=== PATIENT | female | born 1990 | race Caucasian/White ===

== ENCOUNTER 2016-05-25 10:23 | Observation (INO) | payer OTHER ==
[2016-05-25] MEDS ORDERED: HYDROmorphone 1 MG/ML 1 ML SYRINGE IVP STA ×3 (12:30→15:26)
[2016-05-25] MEDS ORDERED: SODIUM CHLORIDE 0.9% 1,000 ML IV ONE (12:30)
[2016-05-25] MEDS ORDERED: ONDANSETRON 4 MG/2 ML VIAL IVP STA (12:31)
--- NOTE | 2016-05-25 12:42 | ED ---
Abdominal Pain HPI <Vinod Collado - Last Filed: 05/25/16 17:48> - General Source: patient, RN notes reviewed Mode of arrival: ambulatory Limitations: no limitations <Kamla Corrales - Last Filed: 05/25/16 20:33> - General Chief Complaint: Abdominal Pain Stated Complaint: Had miscarriage/ bleeding Time Seen by Provider: 05/25/16 11:56 - History of Present Illness Initial Comments: Patient is 26-year-old female presents to the emergency room for evaluation of lower abdominal pain. Patient states that she was diagnosed with a miscarriage 3 days ago. Patient states she found out she was on 05/14/16. Patient states she began with vaginal bleeding and lower abdominal pain. Patient states she went to [facility] 3 days ago and was told was having a miscarriage and told her to return to the emergency room if she is having worsening pain. Patient states they did do an ultrasound at [facility] and told her she could be having a possible ectopic . Patient states she began having worsening pain today. Patient states having bilateral lower pelvic pain with bleeding. Patient states she was passing multiple clots yesterday. Patient states pain radiates to her back. Patient states she is nauseous and has been vomiting from pain. Patient denies pain or burning during urination, trouble urinating or blood in urine. Patient states she has a history of 1 previous miscarriage in March. Patient denies any previous pregnancies. Patient denies chest pain, shortness of breath, headache , dizziness. (Kamla Corrales) - Related Data Home Medications Medication Instructions Recorded Confirmed No Known Home Medications [No 05/25/16 05/25/16 Known Home Medications] Allergies Allergy/AdvReac Type Severity Reaction Status Date / Time No Known Allergies Allergy Verified 05/25/16 10:46 Review of Systems ROS Other: All systems not noted in ROS Statement are negative. <Vinod Collado - Last Filed: 05/25/16 17:48> ROS Other: All systems not noted in ROS Statement are negative. <Kamla Corrales - Last Filed: 05/25/16 20:33> ROS Statement: Those systems with pertinent positive or pertinent negative responses have been documented in the HPI. Past Medical History Additional Past Medical History / Comment(s): back pain History of Any Multi-Drug Resistant Organisms: None Reported Additional Past Surgical History / Comment(s): breast biopsy 07/2013 right breast Past Anesthesia/Blood Transfusion Reactions: No Reported Reaction Past Psychological History: No Psychological Hx Reported Smoking Status: Current every day smoker Past Alcohol Use History: Heavy Past Drug Use History: Marijuana <Kamla Corrales - Last Filed: 05/25/16 20:33> General Exam <Vinod Collado - Last Filed: 05/25/16 17:48> Limitations: no limitations General appearance: alert, in no apparent distress Head exam: Present: atraumatic, normocephalic, normal inspection Eye exam: Present: normal appearance ENT exam: Present: normal exam Neck exam: Present: normal inspection Respiratory exam: Present: normal lung sounds bilaterally. Absent: respiratory distress Cardiovascular Exam: Present: normal rhythm, tachycardia, normal heart sounds GI/Abdominal exam: Present: soft, tenderness (Right lower quadrant and left lower quadrant), normal bowel sounds. Absent: distended, guarding, rebound, rigid External exam: Present: normal external exam Speculum exam: Present: vaginal bleeding (Mild vaginal bleeding from cervix, no clotting noted.). Absent: normal speculum exam By manual exam: Present: adnexal tenderness Extremities exam: Present: normal inspection Back exam: Present: normal inspection Neurological exam: Present: alert, oriented X3, CN II-XII intact, normal gait Psychiatric exam: Present: normal affect, normal mood Skin exam: Present: warm, dry, intact, normal color. Absent: rash <Kamla Corrales - Last Filed: 05/25/16 20:33> - General Exam Comments Initial Comments: Sitting in exam room, anxious secondary to pain, no acute distress. (Kamla Corrales) Medical Decision Making - Lab Data Result diagrams: 05/25/16 15:40 05/25/16 11:41 <Vinod Collado - Last Filed: 05/25/16 17:48> - Lab Data Result diagrams: 05/25/16 18:16 05/25/16 11:41 - Radiology Data Radiology results: report reviewed, image reviewed <Kamla Corrales - Last Filed: 05/25/16 20:33> - Medical Decision Making I staffed the patient with Kamla and they went in and evaluated the patient for myself. I got a complete history with the patient I did a physical exam on the patient I reviewed all lab work and ultrasound and I spoke with Dr. Glass. I indicated to Dr. Glass as ectopic with internal bleeding I repeated a hemoglobin in the emergency department hemoglobin was 9 down from [address] Glass stated she would take the patient to the OR. ( Vinod Collado) Patient is a 26-year-old female presents emergency room for evaluation of worsening lower abdominal pain. Patient was diagnosed with a miscarriage about 3 days ago. Patient's hemoglobin at [facility] on 05/21/16 at 13.0. Patient 's hemoglobin today 10.3. Ultrasound showed evidence for possible ruptured ectopic . On reevaluation patient did appear more pale than first encounter with her. CBC redrawn and hemoglobin went down and 9. Case discussed with Dr. Collado. Dr. Collado also evaluated patient. Discussed case with Dr. Glass who is going to a patient down to the OR. Plan discussed with patient. (Kamla Corrales) - Lab Data Lab Results 05/25/16 05/25/16 05/25/16 Range/Units 11:41 11:41 11:41 WBC 8.6 (3.8-10.6) k/uL RBC 3.35 L (3.80-5.40) m/uL Hgb 10.2 L D (11.4-16.0) gm/dL Hct 31.7 L (34.0-46.0) % MCV 94.6 (80.0-100.0) fL MCH 30.5 (25.0-35.0) pg MCHC 32.3 (31.0-37.0) g/dL RDW 12.1 (11.5-15.5) % Plt Count 212 (150-450) k/uL Neutrophils % 81 % Lymphocytes % 13 % Monocytes % 5 % Eosinophils % 0 % Basophils % 0 % Neutrophils # 7.0 (1.3-7.7) k/uL Lymphocytes # 1.1 (1.0-4.8) k/uL Monocytes # 0.4 (0-1.0) k/uL Eosinophils # 0.0 (0-0.7) k/uL Basophils # 0.0 (0-0.2) k/uL Sodium 140 (137-145) mmol/L Potassium 3.9 (3.5-5.1) mmol/L Chloride 106 (98-107) mmol/L Carbon Dioxide 24 (22-30) mmol/L Anion Gap 10 mmol/L BUN 13 (7-17) mg/dL Creatinine 0.58 (0.52-1.04) mg/dL Est GFR (MDRD) Af Amer >60 (>60 ml/min/1.73 sqM) Est GFR (MDRD) Non-Af >60 (>60 ml/min/1.73 sqM) Glucose 104 H (74-99) mg/dL Calcium 9.0 (8.4-10.2) mg/dL Total Bilirubin 0.5 (0.2-1.3) mg/dL AST 15 (14-36) U/L ALT 30 (9-52) U/L Alkaline Phosphatase 32 L (38-126) U/L Total Protein 6.7 (6.3-8.2) g/dL Albumin 4.1 (3.5-5.0) g/dL HCG, Quant 351.2 mIU/mL Blood Type Blood Type Recheck Antibody Screen Crossmatch Spec Expiration Date 05/25/16 05/25/16 05/25/16 Range/Units 11:41 15:40 18:16 WBC 7.4 9.4 (3.8-10.6) k/uL RBC 2.79 L 2.83 L (3.80-5.40) m/uL Hgb 9.0 L 9.0 L (11.4-16.0) gm/dL Hct 26.7 L 27.7 L (34.0-46.0) % MCV 95.7 97.9 (80.0-100.0) fL MCH 32.1 32.0 (25.0-35.0) pg MCHC 33.6 32.7 (31.0-37.0) g/dL RDW 12.2 12.1 (11.5-15.5) % Plt Count 189 187 (150-450) k/uL Neutrophils % % Lymphocytes % % Monocytes % % Eosinophils % % Basophils % % Neutrophils # (1.3-7.7) k/uL Lymphocytes # (1.0-4.8) k/uL Monocytes # (0-1.0) k/uL Eosinophils # (0-0.7) k/uL Basophils # (0-0.2) k/uL Sodium (137-145) mmol/L Potassium (3.5-5.1) mmol/L Chloride (98-107) mmol/L Carbon Dioxide (22-30) mmol/L Anion Gap mmol/L BUN (7-17) mg/dL Creatinine (0.52-1.04) mg/dL Est GFR (MDRD) Af Amer (>60 ml/min/1.73 sqM) Est GFR (MDRD) Non-Af (>60 ml/min/1.73 sqM) Glucose (74-99) mg/dL Calcium (8.4-10.2) mg/dL Total Bilirubin (0.2-1.3) mg/dL AST (14-36) U/L ALT (9-52) U/L Alkaline Phosphatase (38-126) U/L Total Protein (6.3-8.2) g/dL Albumin (3.5-5.0) g/dL HCG, Quant mIU/mL Blood Type O Positive Blood Type Recheck No Antibody Screen NEGATIVE Crossmatch See Detail Spec Expiration Date 05/28/2016 - 2341 Critical Care Time Critical Care Time: Yes Total Critical Care Time: 35 <Vinod Collado - Last Filed: 05/25/16 17:48> Disposition <Vinod Collado - Last Filed: 05/25/16 17:48> Decision Date: 05/25/16 <Kamla Corrales - Last Filed: 05/25/16 20:33> Clinical Impression: Ruptured ectopic Disposition: ADMITTED IP TO THIS [facility] Condition: Stable Referrals: Kenneth Sanders MD [Primary Care Provider] - 1-2 days
[2016-05-25 12:50] LABS: Basophils % (A) 0 %; CH 31.6; CHCM 33.5; Eosinophils % (A) 0 %; HCT 31.7 % (34.0-46.0); HDW 2.25; Luc % (Auto) 1; Lymphocytes # (A) 1.1 k/uL (1.0-4.8); Lymphocytes % (A) 13 %; MCH 30.5 pg (25.0-35.0); MCHC 32.3 g/dL (31.0-37.0); MCV 94.6 fL (80.0-100.0); Monocytes # (A) 0.4 k/uL (0-1.0); Monocytes % (A) 5 %; Neutrophils % (A) 81 %; RBC 3.35 m/uL (3.80-5.40); RDW 12.1 % (11.5-15.5); WBC 8.6 k/uL (3.8-10.6); WBC (Perox) 8.69
[2016-05-25 12:59] LABS: HGB 10.2 gm/dL (11.4-16.0)
[2016-05-25 13:02] LABS: ALT 30 U/L (9-52); AST 15 U/L (14-36); Alkaline Phosphatase 32 U/L (38-126); Anion Gap 10 mmol/L; Blood Urea Nitrogen 13 mg/dL (7-17); Carbon Dioxide 24 mmol/L (22-30); Chloride 106 mmol/L (98-107); Glucose 104 mg/dL (74-99); Non-African American GFR(MDRD) >60 (>60 ml/min/1.73 sqM); Potassium 3.9 mmol/L (3.5-5.1); Sodium 140 mmol/L (137-145); Total Bilirubin 0.5 mg/dL (0.2-1.3); Total Protein 6.7 g/dL (6.3-8.2)
--- NOTE | 2016-05-25 15:07 | US ---
EXAMINATION TYPE: US OB <=14 wks transvag DATE OF EXAM: 05/25/2016 2:35 PM COMPARISON: NONE CLINICAL HISTORY: Pain. Severe cramping and heavy bleeding EXAM PERFORMED: EXAM MEASUREMENTS: GESTATIONAL AGE / DATING Physician Established: not established Dates by LMP: unknown Dates by First Scan: this is first scan here Dates by Current Scan for: no IUP identified MATERNAL ANATOMY FINDINGS:: Patient states she had a miscarriage in March, then a regular period in April, and found out she was in May. Uterus: 7.4 x 3.0 x 4.2 cm Right Ovary: 2.5 x 2.0 x 2.3 cm Left Ovary: 2.6 x 2.6 x 2.3 cm Post CDS / Adnexa: matted mess throughout right adnexa, area measuring 9.4 x 8.7 x 9.1 cm Presence of free fluid: extensiver throughout cul de sac and adnexa with debris. Presence of corpus luteal cyst: on left ovary GESTATION / SURVEY Date of LMP: unknown Beta HcG (if available): 351 Patient unsure how far along she is due to history of miscarriage in March, regular cycle in , and she found out she was in May. Matted mess in right adnexal region, unable to e xclude ectopic due to positive beta levels. Other inflammatory processes not excluded. IMPRESSION: Extensive abnormal echogenicity throughout the adnexa and cul-de-sac. Could potentially represent hem orrhage. If there is clinical concern for ruptured ectopic this would be in the differentia l diagnosis. Other etiologies including inflammatory or infectious etiologies not excluded. CT scan r ecommended.
[2016-05-25 15:49] LABS: CH 31.6; CHCM 33.1; HCT 26.7 % (34.0-46.0); HDW 2.25; MCH 32.1 pg (25.0-35.0); MCHC 33.6 g/dL (31.0-37.0); MCV 95.7 fL (80.0-100.0); Mean Platelet Volume 7.4; RBC 2.79 m/uL (3.80-5.40); RDW 12.2 % (11.5-15.5); WBC 7.4 k/uL (3.8-10.6)
[2016-05-25] MEDS ORDERED: ONDANSETRON 4 MG/2 ML VIAL IVP PRN (16:24)
[2016-05-25] MEDS ORDERED: NALOXONE 0.4 MG/ML 1 ML VIAL IV PRN (16:24)
[2016-05-25] MEDS ORDERED: SODIUM CHLORIDE 0.9% 1,000 ML IV SCH (16:30)
--- NOTE | 2016-05-25 16:37 | P.OBCN ---
History of Present Illness Consult date: 05/25/16 Reason for consult: pelvic pain, other () Chief complaint: Severe pelvic pain and vaginal bleeding History of present illness: This is a 26-year-old 2 para 0010 woman with an LMP in April who presents with several days of worsening lower abdominal pain and vaginal bleeding. She was evaluated on 05/21/2016 at [facility] at which time she was diagnosed with a miscarriage however there was soft findings on ultrasound that could not rule out ectopic . She continued to have severe lower abdominal pain worsening today's she presented to the emergency room. Ultrasound today reveals complex pelvic fluid consistent with hemorrhage as well as complex structure involving the right adnexa consistent with probable ruptured ectopic . Beta hCG is 381. Her hemoglobin has decreased from approximately 10.5-9.0 during her stay in the emergency room. She is currently complaining of feeling short of breath, nauseated and severe lower abdominal pain. She reports the vaginal bleeding has actually decreased somewhat. Her obstetric history is significant for a spontaneous miscarriage in March 2016. Review of Systems Constitutional: Reports fatigue, Reports weakness, Denies chills, Denies fever Cardiovascular: Reports rapid heart beat, Reports shortness of breath Respiratory: Denies cough Gastrointestinal: Reports abdominal pain, Denies BRBPR, Denies constipation, Denies diarrhea Genitourinary: Reports abnormal vaginal bleeding, Denies hematuria Integumentary: Denies rash Neurological: Denies headaches Past Medical History Additional Past Medical History / Comment(s): back pain History of Any Multi-Drug Resistant Organisms: None Reported Additional Past Surgical History / Comment(s): breast biopsy 07/2013 right breast Past Anesthesia/Blood Transfusion Reactions: No Reported Reaction Past Psychological History: No Psychological Hx Reported Smoking Status: Current every day smoker Past Alcohol Use History: Heavy Past Drug Use History: Marijuana Medications and Allergies Home Medications Medication Instructions Recorded Confirmed Type No Known Home Medications [No 05/25/16 05/25/16 History Known Home Medications] Allergies Allergy/AdvReac Type Severity Reaction Status Date / Time No Known Allergies Allergy Verified 05/25/16 10:46 Exam - Vital Signs Vital signs: Vital Signs Temp Pulse Resp BP Pulse Ox 05/25/16 16:25 98.0 F 78 18 109/59 99 05/25/16 15:41 98.7 F 73 18 109/55 97 05/25/16 14:39 98.1 F 85 18 111/54 97 05/25/16 10:42 97.9 F 104 H 18 114/63 98 Intake and Output 05/25/16 05/25/16 05/25/16 06:59 14:59 22:59 Other: Weight 54.431 kg Patient Weight 05/26/16 06:59 Weight 54.431 kg This is a pale and uncomfortable-appearing female. She appears short of breath. HEENT exam is unremarkable for palpable lymphadenopathy. The heart is regular however mildly tachycardic with no detectable murmur. The lungs are clear to auscultation anteriorly. The abdomen is moderately distended and tense with positive rebound and guarding. Pelvic examination is deferred. Results Result Diagrams: 05/25/16 15:40 05/25/16 11:41 Abnormal Lab Results - Last 24 Hours (Table) 05/25/16 05/25/16 05/25/16 Range/Units 11:41 11:41 15:40 RBC 3.35 L 2.79 L (3.80-5.40) m/uL Hgb 10.2 L D 9.0 L (11.4-16.0) gm/dL Hct 31.7 L 26.7 L (34.0-46.0) % Glucose 104 H (74-99) mg/dL Alkaline Phosphatase 32 L (38-126) U/L US - abdomen: report reviewed, image reviewed Assessment and Plan (1) Pelvic pain Status: Acute (2) Vaginal bleeding Status: Acute (3) Ruptured ectopic Status: Acute Plan: This is a 26-year-old 2 para 0010 woman with evidence of ruptured right ectopic and hemoperitoneum. She is hemodynamically unstable at this time. She was counseled regarding the situation and my recommendation for exploratory laparotomy with evacuation of hemoperitoneum and treatment of the ectopic . On ultrasound this appears to be on the right side. She is consented for exploratory laparotomy, right salpingostomy, possible right salpingectomy or possible right oophorectomy and any indicated surgery. She has been typed and crossed for 2 units of packed red blood cells. Risks of the procedure are reviewed with her and the father of the baby who is present at the bedside. Risks include, but are not limited to: Bleeding, transfusion, infection, damage to bowel, bladder, ureters and/or other pelvic structures, anesthesia complications, DVT, PE and or . The patient understands these risks and all questions are answered. Consent is obtained. The operating room is notified.. Time with Patient: Greater than 30
[2016-05-25] MEDS ORDERED: LACTATED RINGERS 1,000 ML IV ONE ×2 (16:49→17:39)
[2016-05-25] MEDS ORDERED: ONDANSETRON 4 MG/2 ML VIAL ONE (16:49)
[2016-05-25] MEDS ORDERED: SUCCINYLCHOLINE CHLORIDE 100 MG/5 ML SYR IV ONE (16:49)
[2016-05-25] MEDS ORDERED: LIDOCAINE 1% INJ 10MG/ML (20 ML MDV) ONE (16:49)
[2016-05-25] MEDS ORDERED: fentaNYL (PF) 50 MCG/ML 2 ML AMP ONE (16:49)
[2016-05-25] MEDS ORDERED: NEOSTIGMINE 1 MG/ML 10 ML VIAL ONE (16:49)
[2016-05-25] MEDS ORDERED: ceFAZolin 1,000 MG VIAL ONE (16:49)
[2016-05-25] MEDS ORDERED: PROPOFOL 10 MG/ML 20 ML VIAL IV ONE (16:49)
[2016-05-25] MEDS ORDERED: GLYCOPYRROLATE 0.2 MG/ML 2 ML VIAL ONE (16:49)
[2016-05-25] MEDS ORDERED: MIDAZOLAM 2 MG/2 ML VIAL ONE (16:49)
[2016-05-25] MEDS ORDERED: ROCURONIUM BROMIDE 10 MG/ML 10 ML VIAL IV ONE (16:49)
[2016-05-25] MEDS ORDERED: CELLULOSE,OXIDIZED 1 EACH EACH MISCELLANE ONE (17:22)
--- NOTE | 2016-05-25 17:55 | P.OP ---
Date of Procedure: 05/25/16 Preoperative Diagnosis: Suspected right ruptured ectopic Hemoperitoneum Abdominal pain Vaginal bleeding Postoperative Diagnosis: Right ruptured ectopic hemoperitoneum abdominal pain vaginal bleeding Procedure(s) Performed: Exploratory laparotomy with evacuation of hemoperitoneum and right salpingectomy Anesthesia: CAYDEN Surgeon: Ananya Glass Estimated Blood Loss (ml): 700 IV fluids (ml): 900 Urine output (ml): 5 Pathology: other (Right fallopian tube and ectopic tissue) Condition: stable Disposition: PACU Operative Findings: Approximately 650 mL of hemoperitoneum and organized clot evacuated from the pelvis. Enlarged and actively bleeding right fallopian tube with partial extrusion of ectopic tissue and rupture of the distal portion of the fallopian tube. Filmy adhesions of the right fallopian tube to the right ovary which otherwise appeared normal. Grossly normal-appearing left fallopian tube and ovary. Grossly normal-appearing uterus. Appendix was not visualized. Description of Procedure: Patient was transported from the emergency room directly to the operating room. Gen. anesthetic was administered without incident. She was positioned, prepped and draped in the dorsal supine position. A low transverse skin incision was made and carried down to the underlying fascia sharply. The fascia was incised in the midline and extended bilaterally with the Montero scissors. The inferior and superior aspect of the fascial incision were elevated and the underlying rectus muscles dissected off sharply. The peritoneum was identified in the midline and was tented up. The peritoneum was entered sharply with Metzenbaum scissors. Copious amount of hemoperitoneum was evacuated initially. With better visualization the peritoneal incision was extended inferiorly and superiorly with good visualization the bladder. The Akshat self retaining ring retractor was placed and the bowel was packed out of the pelvis to allow for better visualization. [place] clamp was utilized to elevate the right fallopian tube out of the pelvis and the above findings were noted. Initial attempts at salpingostomy were made. Bovie electrocautery was utilized to extend the area of rupture to allow for evacuation of the ectopic tissue. This was evacuated. The base of the fallopian tube was actively bleeding. 3-0 Vicryl suture was utilized to attempt to close this in a running fashion however active bleeding was still noted despite compression and observation. The decision therefore was made to perform salpingectomy. The fallopian tube was isolated slightly distal to the right cornu of the uterus. A window was made and the mesosalpinx. Gris clamp was utilized to clamp the tube at this point and further along the mesosalpinx. The fallopian tube was then removed with the Montero scissors. 2-0 Vicryl suture was utilized to doubly suture ligate the mesosalpinx. The ovary was inspected and Bovie electrocautery was utilized were necessary for hemostasis. The pelvis was copiously suction irrigated and the left fallopian tube and ovary were inspected and noted to be normal. Surgical sites were inspected and noted to be hemostatic. Packing was removed from the abdomen. Interceed was placed over the right ovary for an adhesion barrier. The peritoneum was reapproximated in the midline. Rectus muscles were inspected and noted to be hemostatic. The fascia was closed in a running fashion with 0 Vicryl suture. The subcu together tissue was reapproximated with 3-0 chromic. The skin was then closed in a subcutaneous fashion using 4-0 Vicryl suture. Sterile dressing was applied. All counts reported to me as correct by the operating room staff. The patient was awoken from anesthetic and transported to the recovery area in stable condition. Postoperative hemoglobin will be obtained and decision for need for transfusion will be made based on that. She is hemodynamically stable at the time of conclusion of the procedure. Patient's blood type is O+, antibody screen negative.
[2016-05-25] MEDS ORDERED: ALBUTEROL NEBULIZED 2.5 MG/3 ML INHALATION ONE (18:03)
[2016-05-25] MEDS: MEPERIDINE 50 MG/ML SYRINGE IVP ONE ×3 (18:10→18:41)
[2016-05-25 18:32] LABS: CH 31.2; HCT 27.7 % (34.0-46.0); HDW 2.19; MCHC 32.7 g/dL (31.0-37.0); MCV 97.9 fL (80.0-100.0); Mean Platelet Volume 7.2; RBC 2.83 m/uL (3.80-5.40); RDW 12.1 % (11.5-15.5); WBC 9.4 k/uL (3.8-10.6)
[2016-05-25] MEDS: HYDROmorphone 1 MG/ML 1 ML SYRINGE IV PRN ×2 (19:18→22:42)
[2016-05-25] MEDS ORDERED: ACETAMINOPHEN IV (For NPO) 1,000 MG in EMPTY BAG 1 BAG IVPB ONE (19:20)
[2016-05-25] MEDS ORDERED: IBUPROFEN 600 MG TAB PO PRN (19:20)
[2016-05-25] MEDS ORDERED: Acetaminophen-Codeine 300-30mg TAB PO PRN ×2 (19:20)
[2016-05-25] MEDS: LACTATED RINGERS 1,000 ML IV SCH (20:29)
[2016-05-26] MEDS: HYDROmorphone 1 MG/ML 1 ML SYRINGE IV PRN (01:28)
[2016-05-26] MEDS: LACTATED RINGERS 1,000 ML IV SCH (07:36)
[2016-05-26 07:39] LABS: Basophils % (A) 0 %; CHCM 31.9; Eosinophils # (A) 0.1 k/uL (0-0.7); Eosinophils % (A) 1 %; HDW 2.21; HGB 7.9 gm/dL (11.4-16.0); Luc # (Auto) 0.07; Luc % (Auto) 1; Lymphocytes # (A) 1.1 k/uL (1.0-4.8); Lymphocytes % (A) 17 %; MCH 30.9 pg (25.0-35.0); MCHC 31.6 g/dL (31.0-37.0); MCV 97.7 fL (80.0-100.0); Monocytes # (A) 0.5 k/uL (0-1.0); Monocytes % (A) 8 %; Neutrophils # (A) 4.7 k/uL (1.3-7.7); Neutrophils % (A) 72 %; RBC 2.56 m/uL (3.80-5.40); RDW 12.2 % (11.5-15.5); WBC 6.5 k/uL (3.8-10.6); WBC (Perox) 6.78
[2016-05-26 08:24] VITALS: BP 102/55; PULSE 78; RESP 16; TEMP 97.9
[2016-05-26] MEDS ORDERED: HYDROcodone/APAP 5-325MG 1 EACH TAB PO PRN ×2 (08:29)
--- NOTE | 2016-05-26 08:37 | P.DS ---
Providers Date of admission: 05/25/16 16:29 Expected date of discharge: 05/26/16 Attending physician: Ananya Glass Primary care physician: Kenneth Sanders - Discharge Diagnosis(es) (1) Pelvic pain Current Visit: Yes Status: Acute (2) Vaginal bleeding Current Visit: Yes Status: Acute (3) Ruptured ectopic Current Visit: Yes Status: Acute Hospital Course: This is a 26-year-old 2 para 0020 woman who presented with vaginal bleeding, severe abdominal pain and history of positive test. She was diagnosed with probable ruptured right ectopic based on ultrasound findings of hemoperitoneum and complex right adnexal structure. Her beta hCG was 381. She was symptomatically anemic. She was taken to the operating room where she underwent an exploratory laparotomy. Findings at the time of surgery were consistent with a large hemoperitoneum, proximally 650 mL' s of both fresh bright red blood and organized clot. The distal portion of the right fallopian tube contained partially extruded ectopic tissue and rupture. Salpingectomy was attempted however bleeding cannot be controlled therefore salpingectomy was performed. Please see the operative report for details. Her postoperative hemoglobin in the recovery area remained stable at 9.0. Throughout the evening of postoperative day 0 the patient was stable. Her postop day 1 hemoglobin was 7.9. Her pain was poorly controlled with Tylenol plus codeine. She denied feeling dizzy with ambulation. She had no active vaginal bleeding. She is tolerating a general diet. She was discharged home pending removal Allred catheter and ability to void spontaneously as well as better pain management control. Patient Condition at Discharge: Stable Plan - Discharge Summary New Discharge Prescriptions: HYDROcodone/APAP 5-325MG [[place] 5-325] 2 each PO Q4HR PRN #20 tab PRN Reason: Moderate To Severe Pain Discharge Medication List HYDROcodone/APAP 5-325MG [[place] 5-325] 2 each PO Q4HR PRN #20 tab 05/26/16 [Rx] Follow up Appointment(s)/Referral(s): Ananya Glass MD [STAFF PHYSICIAN] - 2 Weeks Activity/Diet/Wound Care/Special Instructions: Follow-up in the office 2 weeks postoperatively. May use [id number] ibuprofen 400-600 mg every 6 hours as needed for pain in addition to her prescription pain medications. Call the office with any concerning signs or symptoms including redness or drainage from the incision, severe abdominal pain , heavy vaginal bleeding, fever greater than 100.5 or any redness or swelling of the lower extremities. No intercourse, nothing in the vagina for 2 weeks or until seen postoperatively. Discharge Disposition: HOME SELF-CARE
== END 2016-05-26 13:55 | disposition home or self-care (01) ==
LOC: EC 10:23 → 3OBS 16:29 → 5MS5E 18:01
PROVIDERS: ADMIT Obstetrics & Gynecology; ATTEND Obstetrics & Gynecology
DX: O00.10 Tubal pregnancy without intrauterine pregnancy (principal); K66.1 Hemoperitoneum; D64.9 Anemia, unspecified; F17.200 Nicotine dependence, unspecified, uncomplicated
CPT/HCPCS: 59120; 99291; 96374; 96375; 96376 ×2; 96361; 36415; 86900; 86901; 88305; 80053; 85025 ×2; 85027; 86850; 86920; 84702; 76801; 76817; G0378 ×2; J2175; J2405; J1170 ×2; J0131

== ENCOUNTER 2017-07-18 15:44 | Emergency (ER) | payer OTHER ==
[2017-07-18 16:08] VITALS: RESP 16; TEMP 97.6
[2017-07-18] MEDS ORDERED: SODIUM CHLORIDE 0.9% 1,000 ML IV STA ×2 (16:39)
[2017-07-18] MEDS ORDERED: DIPH,PERTUS(ACELL)TETVAC-LF 0.5 ML VIAL IM ONE (16:39)
[2017-07-18] MEDS ORDERED: ceFAZolin IN SWFI 2 GM/20 ML SYRINGE IVP ONE (16:39)
[2017-07-18 16:42] LABS: Basophils % (A) 0 %; Eosinophils # (A) 0.3 k/uL (0-0.7); Eosinophils % (A) 2 %; HCT 33.9 % (34.0-46.0); Lymphocytes # (A) 1.7 k/uL (1.0-4.8); Lymphocytes % (A) 9 %; MCH 29.7 pg (25.0-35.0); MCHC 32.5 g/dL (31.0-37.0); MCV 91.3 fL (80.0-100.0); Mean Platelet Volume 8.1; Monocytes # (A) 0.7 k/uL (0-1.0); Monocytes % (A) 4 %; Neutrophils # (A) 15.6 k/uL (1.3-7.7); Neutrophils % (A) 85 %; Platelet Count 288 k/uL (150-450); RBC 3.72 m/uL (3.80-5.40); RDW 13.4 % (11.5-15.5); WBC 18.4 k/uL (3.8-10.6)
--- NOTE | 2017-07-18 16:51 | ED ---
General Adult HPI - General Chief complaint: Psychiatric Symptoms Stated complaint: Arm laceration Time Seen by Provider: 07/18/17 15:58 Source: patient, RN notes reviewed, old records reviewed Mode of arrival: EMS Limitations: no limitations - History of Present Illness Initial comments: This patient is 27-year-old female with history of psychiatric disease presents emergency Department with self inflicted wound on her left wrist. Patient reports that she cut it 3 times with a kitchen knife. She reports that this occurred because she was in no argument because of pills with her boyfriend. Patient states that she was replaced on his psychiatric medication. Patient was brought here via EMS because he was would not stop bleeding. Patient arrived with a tourniquet in place. She soaked through multiple towels. Patient reports feel somewhat lightheaded and dizzy. She states that she did this purposely to kill herself. - Related Data Home Medications Medication Instructions Recorded Confirmed QUEtiapine [SEROquel] 50 mg PO BID 07/18/17 07/18/17 Sertraline [Zoloft] 100 mg PO DAILY 07/18/17 07/18/17 Allergies Allergy/AdvReac Type Severity Reaction Status Date / Time No Known Allergies Allergy Verified 07/18/17 16:54 Review of Systems ROS Statement: Those systems with pertinent positive or pertinent negative responses have been documented in the HPI. ROS Other: All systems not noted in ROS Statement are negative. Past Medical History Additional Past Medical History / Comment(s): back pain History of Any Multi-Drug Resistant Organisms: None Reported Additional Past Surgical History / Comment(s): breast biopsy 07/2013 right breast , Tubal with rupture. Past Anesthesia/Blood Transfusion Reactions: No Reported Reaction Past Psychological History: Anxiety, Bipolar, Depression Smoking Status: Current every day smoker Past Alcohol Use History: Heavy Past Drug Use History: Marijuana - Past Family History Father Family Medical History: Hyperlipidemia, Hypertension Mother Additional Family Medical History / Comment(s): DEPRESSION, HYSTERECTOMY General Exam - General Exam Comments Initial Comments: 27-year-old female. Patient appears in moderate discomfort. Patient appears anxious and was tearful. Limitations: no limitations General appearance: alert, in no apparent distress Head exam: Present: atraumatic Eye exam: Present: normal appearance, PERRL, EOMI. Absent: scleral icterus, conjunctival injection, periorbital swelling ENT exam: Present: normal exam, mucous membranes moist Neck exam: Present: normal inspection. Absent: tenderness, meningismus, lymphadenopathy Respiratory exam: Present: normal lung sounds bilaterally. Absent: respiratory distress, wheezes, rales, rhonchi, stridor Cardiovascular Exam: Present: regular rate, normal rhythm, normal heart sounds. Absent: systolic murmur, diastolic murmur, rubs, gallop, clicks GI/Abdominal exam: Present: soft, normal bowel sounds. Absent: distended, tenderness, guarding, rebound, rigid Left Shoulder Exam: Present: normal inspection, full ROM Upper Arm exam: Present: normal inspection, full ROM Elbow exam: Present: normal inspection, full ROM Forearm Wrist exam: Present: laceration (Patient's laceration was having significant bleeding. Bleeding would stop prolonged tourniquet applied. ), erythema, other (patient unable to flex wrist). Absent: normal inspection ( Patient has 3 lacerations over the anterior aspect of the distal forearm. First laceration is approximately 5 cm. Second laceration is partially 370s. Third laceration at the wrist is a proximally for some years. They're all over the radial aspect of the forearm. Patient has what appears to be tendon involvement. She does have range of motion of her fingers. She reports that she cannot flex her wrist.) Hand Wrist exam: Present: other (extremity is cool to touch, unable to tell due to tourniquet or radial artery involvement. ) Neuro motor exam: Present: thumb opposition intact, thumb IP flexion intact, thumb adduction intact, fingers 2-5 abduction intact Vascular: Present: radial pulse (Radial pulse felt and heard with doppler. It appears that this is a significant venous bleeding.), ulnar pulse (Ulnar pulse was felt and heard with raising Doppler.) Back exam: Present: normal inspection Neurological exam: Present: alert, oriented X3, CN II-XII intact Psychiatric exam: Present: depressed. Absent: normal affect, normal mood Skin exam: Present: warm, dry, intact, normal color. Absent: rash Course Vital Signs 07/18/17 07/18/17 16:02 16:34 Temperature 97.6 F Pulse Rate 85 86 Respiratory 16 Rate Blood Pressure 115/70 100/60 O2 Sat by Pulse 100 100 Oximetry - Reevaluation(s) Reevaluation #1: 07/18/17 16:46 Patient was evaluated by vascular surgeon . He came down and examined the patient. He is concerned with tendon involvement. He would like the patient transferred to [facility]. Medical Decision Making - Medical Decision Making This is a 27-year-old female presents emergency Department after self-inflicted wound over the left wrist. She is depressed, she states she started a new medication one month ago. She has 3 lacerations over her left distal wrist over the radial aspect. Wounds were bleeding profusely. She had a tourniquet in place which would stop some of the bleeding. I do believe there could be some radial artery involvement to the patient's laceration. She does have some evidence of flexor tendon involvement. She is unable to flex her wrist. Patient does have range of motion of her fingers. She was evaluated by our vascular surgeon Dr. Walker. He wants the patient to be transferred to [facility] for Orthovascular specialty. Patient was given IV fluids, CBC and coags and type and screen obtained. Patient started on Kefzol and given a tetanus. Patient wound was then stopped with multiple pressure dressings and Coban. A tourniquet was removed. Discussed the case with Dr. Sauceda, attending ER physician. He discussed this with [facility] orthopedic surgeon for transfer. - Lab Data Result diagrams: 07/18/17 16:30 Lab Results 07/18/17 Range/Units 16:30 WBC 18.4 H (3.8-10.6) k/uL RBC 3.72 L (3.80-5.40) m/uL Hgb 11.0 L (11.4-16.0) gm/dL Hct 33.9 L (34.0-46.0) % MCV 91.3 (80.0-100.0) fL MCH 29.7 (25.0-35.0) pg MCHC 32.5 (31.0-37.0) g/dL RDW 13.4 (11.5-15.5) % Plt Count 288 (150-450) k/uL Neutrophils % 85 % Lymphocytes % 9 % Monocytes % 4 % Eosinophils % 2 % Basophils % 0 % Neutrophils # 15.6 H (1.3-7.7) k/uL Lymphocytes # 1.7 (1.0-4.8) k/uL Monocytes # 0.7 (0-1.0) k/uL Eosinophils # 0.3 (0-0.7) k/uL Basophils # 0.0 (0-0.2) k/uL Disposition Clinical Impression: Depression, Laceration of left wrist with complication, Tendon laceration Disposition: DC/TRNS INTERMEDIATE CARE FAC Condition: Stable Referrals: Kenneth Sanders MD [Primary Care Provider] - 1-2 days Time of Disposition: 16:51 - Out of Hospital Transfer - Req. Specs Out of Hospital Transfer - Requested Specifics: Other Emergency Center ([facility])
[2017-07-18 16:52] LABS: INR 1.1 (<1.2)
[2017-07-18] MEDS ORDERED: ONDANSETRON 4 MG/2 ML VIAL IVP STA (17:04)
[2017-07-18 17:10] LABS: Partial Thromboplastin Time 20.9 sec (22.0-30.0)
[2017-07-18 17:26] VITALS: BP 112/44; PULSE 95
== END 2017-07-18 17:37 ==
LOC: EC 15:44
DX: S66.129A Laceration of flexor muscle, fascia and tendon of unspecified finger at wrist and hand level, initial encounter (principal); S51.812A Laceration without foreign body of left forearm, initial encounter; F31.30 Bipolar disorder, current episode depressed, mild or moderate severity, unspecified; F41.9 Anxiety disorder, unspecified; F17.200 Nicotine dependence, unspecified, uncomplicated; Z79.899 Other long term (current) drug therapy; Z23 Encounter for immunization; X78.1XXA Intentional self-harm by knife, initial encounter; Y93.89 Activity, other specified; Y92.009 Unspecified place in unspecified non-institutional (private) residence as the place of occurrence of the external cause
CPT/HCPCS: 36415; 86900; 86901; 85025; 85610; 85730; 86850; 90715; 99285; 96374; 96375; 90471; J2405; J0690

== ENCOUNTER 2017-07-23 12:53 | Inpatient (IN) | payer MEDICAID ==
[2017-07-23] MEDS ORDERED: MAG HYDROX/AL HYDROX/SIMETH 30 ML CUP PO PRN (13:37)
[2017-07-23] MEDS ORDERED: MAGNESIUM HYDROXIDE 2,400 MG/10 ML CUP PO PRN (13:37)
[2017-07-23] MEDS: DOCUSATE 100 MG CAP PO SCH (19:03)
[2017-07-23] MEDS: HYDROcodone/APAP 5-325MG 1 EACH TAB PO PRN (19:04)
[2017-07-23] MEDS: ACETAMINOPHEN TAB 325 MG TAB PO PRN (20:11)
[2017-07-23] MEDS ORDERED: QUEtiapine 50 MG TAB PO SCH (21:00)
[2017-07-24] MEDS: HYDROcodone/APAP 5-325MG 1 EACH TAB PO PRN (03:01)
[2017-07-24] MEDS: NICOTINE 14MG/24HR PATCH TRANSDERM SCH (08:53)
[2017-07-24] MEDS: DOCUSATE 100 MG CAP PO SCH (08:54)
[2017-07-24] MEDS: DIVALPROEX 500 MG TABLET.DR PO SCH ×2 (08:54→20:29)
[2017-07-24] MEDS: NAPROXEN 250 MG TAB PO SCH ×2 (08:55→20:29)
[2017-07-24] MEDS ORDERED: SERTRALINE 100 MG TAB PO SCH (09:00)
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
[2017-07-24 09:44] VITALS: BMI 23.7
[2017-07-24] MEDS: ACETAMINOPHEN TAB 325 MG TAB PO PRN (14:54)
--- NOTE | 2017-07-24 19:13 | CONS ---
CONSULTATION REASON FOR CONSULTATION: July 24, 2017. REASON FOR CONSULTATION: Medical management requested by Dr. Montero. CONSULTATION: This is a 27-year-old patient who was transferred from [facility] since patient slashed her left forearm affecting tendons and had multiple surgeries for the same and left arm is in a cast support. The patient had got in an argument with her boyfriend and cut the left arm multiple times. At that time she wanted to kill herself. The patient has been emotionally unstable for quite some time she states. She has been also doing marijuana for quite some time and also smokes cigarettes about a pack and half a day. She has been diagnosed to have adjustment disorder with mixed disturbance of emotions and conduct and borderline personality disorder. Her appetite is not good. She sleeps quite a bit. Does get constipated. Last bowel movement was about a week ago. The patient has lost some weight. Does get reflux symptoms. REVIEW OF SYSTEMS: Constitutional, decreased appetite, weight loss. HEENT none. RESPIRATORY: None. Cardiovascular none. Gastrointestinal constipation. Genitourinary: None. Musculoskeletal as above. Dermatological as above. Lymphatics none. Psychiatry some depression and anxiety. Neurological none. PAST MEDICAL HISTORY: Some back pain. PAST SURGICAL HISTORY: Breast biopsy, tubal eruption in 2017, left forearm tendon repair with self inflicted laceration with knife. PSYCH HISTORY: Bipolar disorder. SOCIAL HISTORY: Does marijuana daily. Smoking a pack and a half. The patient works at the [employer], living with her mother and boyfriend. FAMILY HISTORY: Of hypertension and hyperlipidemia, depression. CURRENT MEDICATIONS: Include: 1. Depakote 500 mg p.o. b.i.d. 2. Naproxen 500 mg b.i.d. 3. Nicotine patch. 4. Seroquel 100 mg q.h.s. ALLERGIES: None. PHYSICAL EXAMINATION: Temperature 98.4, pulse 79, respiration 16, blood pressure 98/56. GENERAL APPEARANCE: Average build, sitting up, awake. Eyes pupils equal. Conjunctivae normal. HEENT: External appearance of nose and ears normal. Oral cavity normal. Neck JVD not raised. Mass not palpable. Respiratory effort lungs fair entry. Cardiovascular 1st and 2nd sounds no edema. ABDOMEN: Soft, nontender. Liver and spleen not palpable. Lymphatics: No lymph nodes palpable in neck or axillae. PSYCHIATRY: Alert and oriented times three. Slightly anxious-appearing. Extremities left arm in a cast. Good sensation in the left fingers. INVESTIGATIONS: TSH normal. ASSESSMENT: 1. Chronic nicotine dependence. Patient is a cigarette smoker. 2. Chronic marijuana use. 3. Gastroesophageal reflux disease. 4. Hypersomnolence. 5. Self-inflicted wound to the left forearm with injury to the tendons and surgical repair. 6. Adjustment disorder with mixed disturbance and emotions and conduct. 7. Acute constipation from decreased oral intake. PLAN: The patient was advised against use of marijuana smoking. Given a nicotine patch. We will start the patient on Metamucil. The patient is to follow up with her surgeon as an outpatient and follow up with Dr. Sanders upon discharge. Thank you Dr. Montero. Additional note: My computer system was down since this morning. I did call [id number] Núñez to get the issue resolved. Hence was unable to access the computer system for several hours this morning. Copy to Dr. Sanders. MMJOSEL / MARGARITAN: [id number] /
[2017-07-24] MEDS: PSYLLIUM HUSK 100% 6 GM PACKET PO SCH (20:29)
[2017-07-24] MEDS ORDERED: QUEtiapine 100 MG TAB PO SCH (21:00)
[2017-07-25 06:36] VITALS: BP 104/58; PULSE 84; RESP 14; TEMP 98.5
[2017-07-25] MEDS: NAPROXEN 250 MG TAB PO SCH (08:48)
[2017-07-25] MEDS: DOCUSATE 100 MG CAP PO SCH (08:48)
[2017-07-25] MEDS: DIVALPROEX 500 MG TABLET.DR PO SCH (08:48)
[2017-07-25] MEDS: NICOTINE 14MG/24HR PATCH TRANSDERM SCH (08:48)
[2017-07-25] MEDS: PSYLLIUM HUSK 100% 6 GM PACKET PO SCH (08:48)
--- NOTE | 2017-07-25 10:03 | P.DS ---
Providers Date of admission: 07/23/17 16:20 Expected date of discharge: 07/25/17 Attending physician: Lance Montero Consults: 07/23/17 13:37 Consult Physician Routine Consulting Provider: Jorden Mock Consult Reason/Comments: H&P for mental health admission Do you want consulting provider notified?: Yes Primary care physician: Stated None Hospital Course: Patient had her psychiatric evaluation, psychosocial evaluation. After psychiatric evaluation she was started on Depakote 500 mg twice a day and her Seroquel 50 mg twice a day was changed to 100 mg at bedtime since she was feeling sleepy during daytime. Since narcotics were not helping her pain well, was also making her somewhat sluggish and has a long history of self abusive behavior, her Grahn was changed to naproxen 500 mg twice a day. She did well on these medication changes. She became brighter continued to deny suicidal thoughts and agreed she should seek DBT and learn better coping skills. In view of all these improvements and since longer term hospitalization is not recommended for her condition it was agreed to discharge her. She agreed to contact [facility] [place] regarding her left forearm surgery and postop care. Condition on discharge: This is a white ambulatory female with good hygiene. She is polite friendly and cooperative she is wearing a neck to forearm sling. She does not show any psychomotor agitation or retardation. Her speech is spontaneous relevant and goal-directed. Her mood is cheerful and affect is appropriate. She denies hallucinations and delusional thinking. She insists that she is not suicidal want to live longer and does not even want to self abuse. She plans on returning home to live with her mother and boyfriend. She denies homicidal thoughts. She is well oriented with good memory concentration general fund of knowledge etc. 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 Borderline personality disorder F 60.3. Cannabis use disorder severe F 12.20. NKDA. Migraine headaches. Recent self inflicted injuries of left forearm requiring surgical repair and the need for cast and sling. History of chronic pain all over the body. Patient was advised and agreed to take her medications as prescribed, contact [facility] [place] regarding follow-up about her left forearm surgery, seek DBT, learn better coping skills through therapy, not to drink alcohol or use drugs, not to drive or operate machinery if she feels sleepy, to inform her doctor if she gets , to call her psychiatrist or therapist if she gets suicidal thoughts and to go to nearest ER if she cannot get hold of her psychiatrist or therapist, to get the lab tests within one week to check Depakote level, AST, ALT and CBC in an empty stomach. Plan - Discharge Summary Discharge Rx Participant: No New Discharge Prescriptions: New Divalproex [Depakote] 500 mg PO BID 30 Days #60 tablet. Docusate [Colace] 100 mg PO DAILY 30 Days #30 cap Naproxen [Naprosyn] 500 mg PO BID 30 Days #60 tab Psyllium Husk 100% [Metamucil Packet] 6 gm PO BID 30 Days #60 packet QUEtiapine [SEROquel] 100 mg PO HS 30 Days #30 tab Discontinued Sertraline [Zoloft] 100 mg PO DAILY QUEtiapine [SEROquel] 50 mg PO BID Discharge Medication List Divalproex [Depakote] 500 mg PO BID 30 Days #60 tablet. 07/25/17 [Rx] Docusate [Colace] 100 mg PO DAILY 30 Days #30 cap 07/25/17 [Rx] Naproxen [Naprosyn] 500 mg PO BID 30 Days #60 tab 07/25/17 [Rx] Psyllium Husk 100% [Metamucil Packet] 6 gm PO BID 30 Days #60 packet 07/25/17 [ Rx] QUEtiapine [SEROquel] 100 mg PO HS 30 Days #30 tab 07/25/17 [Rx] Ambulatory/Diagnostic Orders: ALT [LAB.AMB] Time Frame: 1 Week, Facility: [facility], Location: [facility] AST [LAB.AMB] Location: Determined By Patient Complete Blood Count w/diff [LAB.AMB] Location: Determined By Patient Miscellaneous Lab Order [LAB.AMB] Time Frame: 1 Week, Facility: [facility], Location: [facility] Activity/Diet/Wound Care/Special Instructions: Per [facility] discharge instructions, follow up with Dr. Ahumada at in 1 week in regards to your left arm. Follow up with [facility] in 10-14 days from discharge:
[2017-07-25 11:39] LABS: Appearance,Urine Clear (Clear); Bilirubin,Urine Negative (Negative); Blood,Urine Negative (Negative); Color,Urine Yellow; Glucose,Urine (UA) Negative (Negative); Ketones,Urine Trace (Negative); Leukocyte Esterase,Urine Negative (Negative); Nitrite,Urine Negative (Negative); PH, Urine 6.5 (5.0-8.0); Protein,Urine Trace (Negative); Specific Gravity,Urine 1.024 (1.001-1.035); Urobilinogen,Urine <2.0 mg/dL (<2.0)
[2017-07-25] MEDS: ACETAMINOPHEN TAB 325 MG TAB PO PRN (14:57)
== END 2017-07-25 16:30 | disposition home or self-care (01) | DRG 882 ==
LOC: 3MHU 16:20
PROVIDERS: ADMIT Psychiatry & Neurology Psychiatry; ATTEND Psychiatry & Neurology Psychiatry
DX: F43.25 Adjustment disorder with mixed disturbance of emotions and conduct (principal); F12.90 Cannabis use, unspecified, uncomplicated; F17.210 Nicotine dependence, cigarettes, uncomplicated; F60.3 Borderline personality disorder; G43.909 Migraine, unspecified, not intractable, without status migrainosus; G47.10 Hypersomnia, unspecified; K21.9 Gastro-esophageal reflux disease without esophagitis; K59.00 Constipation, unspecified; G89.29 Other chronic pain; Z79.899 Other long term (current) drug therapy; Z62.810 Personal history of physical and sexual abuse in childhood; Z91.5 Personal history of self-harm; Z82.49 Family history of ischemic heart disease and other diseases of the circulatory system
CPT/HCPCS: 80061; 81003; 83036; 84443

== ENCOUNTER 2018-05-30 09:19 | Emergency (ER) | payer OTHER ==
[2018-05-30 09:30] VITALS: RESP 18; TEMP 98.4
[2018-05-30] MEDS ORDERED: MORPHINE SULFATE 4 MG/ML SYRINGE IM STA (10:12)
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
[2018-05-30 11:49] VITALS: BP 109/75; PULSE 80
== END 2018-05-30 11:49 | disposition home or self-care (01) ==
LOC: EC 09:19
DX: K04.7 Periapical abscess without sinus (principal); K03.81 Cracked tooth; F17.200 Nicotine dependence, unspecified, uncomplicated
CPT/HCPCS: 99283; 41800; 96372; J2270

== ENCOUNTER 2018-11-23 13:41 | Emergency (ER) | payer OTHER ==
[2018-11-23] MEDS ORDERED: SODIUM CHLORIDE 0.9% 1,000 ML IV STA (14:01)
[2018-11-23] MEDS ORDERED: METOCLOPRAMIDE 5 MG/ML 2 ML VIAL IVP STA (14:30)
[2018-11-23] MEDS ORDERED: PANTOPRAZOLE 40 MG/10 ML VIAL IVP STA (14:30)
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
[2018-11-23 15:04] LABS: Basophils % (A) 0 %; Eosinophils # (A) 0.1 k/uL (0-0.7); Eosinophils % (A) 2 %; HCT 40.2 % (34.0-46.0); Lymphocytes # (A) 1.6 k/uL (1.0-4.8); Lymphocytes % (A) 25 %; MCH 29.8 pg (25.0-35.0); MCHC 32.4 g/dL (31.0-37.0); MCV 91.7 fL (80.0-100.0); Mean Platelet Volume 7.2; Monocytes # (A) 0.4 k/uL (0-1.0); Monocytes % (A) 6 %; Neutrophils # (A) 4.1 k/uL (1.3-7.7); Neutrophils % (A) 65 %; Platelet Count 240 k/uL (150-450); RBC 4.38 m/uL (3.80-5.40); RDW 13.5 % (11.5-15.5); WBC 6.3 k/uL (3.8-10.6)
[2018-11-23 15:07] LABS: ALT 24 U/L (9-52); AST 34 U/L (14-36); African American GFR (CKD) >90 (>60 ml/min/1.73 sqM); Albumin 4.6 g/dL (3.5-5.0); Alkaline Phosphatase 26 U/L (38-126); Amylase 73 U/L (30-110); Anion Gap 9 mmol/L; Blood Urea Nitrogen 15 mg/dL (7-17); Calcium 9.6 mg/dL (8.4-10.2); Carbon Dioxide 25 mmol/L (22-30); Chloride 106 mmol/L (98-107); Glucose 92 mg/dL (74-99); Potassium 4.1 mmol/L (3.5-5.1); Sodium 140 mmol/L (137-145); Total Bilirubin 0.5 mg/dL (0.2-1.3); Total Protein 7.5 g/dL (6.3-8.2)
[2018-11-23 15:14] LABS: Appearance,Urine Clear (Clear); Bilirubin,Urine Negative (Negative); Blood,Urine Negative (Negative); Color,Urine Yellow; Glucose,Urine (UA) Negative (Negative); Ketones,Urine Negative (Negative); Leukocyte Esterase,Urine Negative (Negative); Nitrite,Urine Negative (Negative); Protein,Urine Trace (Negative)
--- NOTE | 2018-11-23 15:35 | XR ---
EXAMINATION TYPE: XR KUB DATE OF EXAM: 11/23/2018 3:28 PM CLINICAL HISTORY: Nausea vomiting and diarrhea. Abdominal pain. TECHNIQUE: Two Upright KUB images of the abdomen are obtained. COMPARISON: None. FINDINGS: Scattered gas is seen in non-distended stomach and small bowel loops. Gas and fecal materia l is seen in non-distended colon. There is no visceromegaly, pneumoperitoneum, or abnormal calcificat ion appreciated. The lung bases are clear and the osseous structures are intact. IMPRESSION: Overall nonobstructive bowel gas pattern.
[2018-11-23 16:24] VITALS: BP 105/70; PULSE 71; RESP 18; TEMP 97.6
== END 2018-11-23 16:24 | disposition home or self-care (01) ==
LOC: EC 13:41
DX: R11.2 Nausea with vomiting, unspecified (principal); R19.7 Diarrhea, unspecified; F17.200 Nicotine dependence, unspecified, uncomplicated
CPT/HCPCS: 36415; 80053; 82150; 83690; 85025; 81003; 81025; 74018; 99284; 96374; 96375; 96361; J2765; C9113

== ENCOUNTER 2019-07-13 05:44 | Emergency (ER) | payer OTHER ==
[2019-07-13 05:53] VITALS: RESP 18; TEMP 98.4
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
--- NOTE | 2019-07-13 07:40 | XR ---
EXAMINATION TYPE: XR chest 2V DATE OF EXAM: 07/13/2019 COMPARISON: 09/07/2015 HISTORY: Cough TECHNIQUE: Frontal and lateral views of the chest are obtained. FINDINGS: There is no focal air space opacity, pleural effusion, or pneumothorax seen. The cardiac silhouette size is within normal limits. The osseous structures are intact. IMPRESSION: No acute cardiopulmonary process.
[2019-07-13 07:46] VITALS: BP 98/65; PULSE 59
== END 2019-07-13 08:08 | disposition home or self-care (01) ==
LOC: EC 05:44
DX: J40 Bronchitis, not specified as acute or chronic (principal); F17.200 Nicotine dependence, unspecified, uncomplicated
CPT/HCPCS: 71046; 81025; 87502; 99284